=== PATIENT | male | born 1950 | race Caucasian/White ===

== ENCOUNTER 2020-03-11 18:34 | Emergency (ER) | payer MEDICARE, BC ==
--- NOTE | 2020-03-11 19:33 | EDM.PDOC ---
ED HPI GENERAL MEDICAL PROBLEM - General Chief Complaint: Abdominal Pain Stated Complaint: ABDOMINAL PAIN Time Seen by Provider: 03/11/20 19:27 Source of Information: Reports: Patient History Limitations: Reports: No Limitations - History of Present Illness INITIAL COMMENTS - FREE TEXT/NARRATIVE: 69-year-old male presents to the ED with diffuse upper abdominal pain starting about 1830 hrs. today. He had a gym eating sausage and sandwich with some ice cream for dinner but 2-1/2 prior to development of the abdominal pain. Abdominal pain for started in the right upper quadrant and then seemed to move into the epigastrium and pressure in between his shoulder blades. It became very bad about 1630 hrs. today and he vomited twice. He felt that most of the food that came up was undigested dinner. No hematemesis. Reports pain is constant and then intermittently gets worse a colicky component to the pain. Abdominal surgery is that of an appendectomy and he has had midline laparotomy for hardware placement for lumbar spine fusion through the mid abdomen about 2 years ago. History of constipation with stools being somewhat harder and more difficult to pass last 2 months. Current pain is rated as a 4-5 out of 10. It is constant. He does not drink alcohol. Onset: Today, Sudden Onset Date: 03/11/20 Onset Time: 14:30 Duration: Hour(s):, Constant (Once in pain with intermittent worsening of the pain.), Waxing/Waning Location: Reports: Abdomen ([facility] upper abdominal pain radiating through to the back between the shoulder blades.), Radiates to (Lower back) Quality: Reports: Ache Severity: Moderate Improves with: Reports: None Worsens with: Reports: None Context: Reports: Other (Spontaneous occurrence of abdominal pain at 1430 hrs. today about an hour and half to 2 hours from eating dinner.). Denies: Activity, Exercise, Lifting, Sick Contact, Trauma Associated Symptoms: Reports: Loss of Appetite, Nausea/Vomiting. Denies: Confusion, Chest Pain, Cough, cough w sputum, Diaphoresis, Fever/Chills, Headaches, Malaise, Rash, Seizure (X2 at 1430 hrs. when the pain was the most severe), Shortness of Breath, Syncope, Weakness Treatments FLUME TENDER: Reports: Other (see below) Upper Abdomen Pain Score (Numeric/FACES): 4 - Related Data Allergies Allergy/AdvReac Type Severity Reaction Status Date / Time Bifidobacterium bifidum Allergy Sneezing Verified 03/11/20 18:51 [From Acidophilus] lactase Allergy Sneezing Verified 03/11/20 18:51 lactobacillus [Lactobacillus] Allergy Sneezing Verified 03/11/20 18:51 Lactobacillus acidophilus Allergy Sneezing Verified 03/11/20 18:51 [From Acidophilus] Lactobacillus salivarius Allergy Sneezing Verified 03/11/20 18:51 [From Acidophilus] Streptococcus thermophilus Allergy Sneezing Verified 03/11/20 18:51 [From Acidophilus] Home Meds: Home Meds Aspirin [Halfprin] 81 mg PO DAILY 04/23/14 [History] Fexofenadine HCl [Olimpia Allergy] 60 mg PO BEDTIME 04/23/14 [History] Fluticasone Furoate [Veramyst] 1 dose ZOEY ASDIRECTED 04/23/14 [History] Multivitamin [Multi Vitamin Daily] 1 tab PO DAILY 04/23/14 [History] Omeprazole [Prilosec] 20 mg PO DAILY 04/23/14 [History] Vit A/Vit C/Vit E/Zinc/Copper [Preservision] 1 tab PO DAILY 04/23/14 [History] DULoxetine [Cymbalta] 20 mg PO BID 03/11/20 [History] Gabapentin [Neurontin] 600 mg PO DAILY 03/11/20 [History] Naltrexone. 03/11/20 [History] Nortriptyline HCl [Pamelor] 25 mg PO DAILY 03/11/20 [History] Tamsulosin HCl 0.4 mg PO DAILY 03/11/20 [History] Past Medical History HEENT History: Reports: Hard of Hearing, Impaired Vision (Wears glasses) Other HEENT History: L) loss of hearing Cardiovascular History: Reports: Afib Genitourinary History: Reports: BPH (On Flomax and saw 5 metal.) Musculoskeletal History: Reports: Arthritis, Back Pain, Chronic (Had surgery about a year and a half ago with fusion done through the anterior abdominal wall. 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) Oncologic (Cancer) History: Reports: Other (See Below) Other Oncologic History: Skin on nose - Past Surgical History GI Surgical History: Reports: Appendectomy Musculoskeletal Surgical History: Reports: Other (See Below) Other Musculoskeletal Surgeries/Procedures:: s1 L4-5 Social & Family History - Family History Family Medical History: Noncontributory - Tobacco Use Smoking Status *Q: Never Smoker - Caffeine Use Caffeine Use: Reports: Coffee - Recreational Drug Use Recreational Drug Use: No - Living Situation & Occupation Living situation: Reports: Occupation: Employed ED ROS GENERAL - Review of Systems Review Of Systems: See Below Constitutional: Reports: Malaise, Weakness, Fatigue, Decreased Appetite. Denies: Fever, Chills HEENT: Reports: Glasses, Hearing Loss Respiratory: Denies: Shortness of Breath, Wheezing, Pleuritic Chest Pain, Cough, Sputum Cardiovascular: Reports: Blood Pressure Problem, Lightheadedness. Denies: Chest Pain, Claudication, Dyspnea on Exertion, Edema, Orthopnea, Palpitations Endocrine: Reports: Fatigue GI/Abdominal: Reports: Abdominal Pain (See history of present illness.), Constipation, Decreased Appetite, Nausea, Vomiting (Nausea and vomiting starting about 1630 hrs. when the pain was the most intense vomited x2) : Reports: Frequency, Other (Nocturia x1 or 2.) Musculoskeletal: Reports: Back Pain (Chronic low back pain with previous fusion at multiple levels lower lumbar spine.) Skin: Reports: No Symptoms Neurological: Reports: Numbness ( peripheral neuropathy in both lower extremities.), Tingling, Other (Has) Psychiatric: Reports: No Symptoms Hematologic/Lymphatic: Reports: No Symptoms, Other Immunologic: Reports: No Symptoms Free Text/Narrative/Comment: Chronic pain syndrome lower extremities from peripheral neuropathy ED EXAM, GI/ABD - Physical Exam Exam: See Below Exam Limited By: No Limitations General Appearance: Alert, WD/WN, No Apparent Distress, Other (Temperature is 37.0. Heart rate 72 in sinus respiratory was 14 BP 180/114. Pulse ox 96% on room air.) Eyes: Bilateral: Normal Appearance (No blepharal pallor or scleral icterus.) Throat/Mouth: Normal Inspection, Normal Lips, Normal Oropharynx, Other Head: Atraumatic, Normocephalic Neck: Normal Inspection, Supple, Non-Tender, Full Range of Motion. No: Carotid Bruit, Lymphadenopathy (L), Lymphadenopathy (R) Respiratory/Chest: No Respiratory Distress, Lungs Clear, Normal Breath Sounds, No Accessory Muscle Use, Chest Non-Tender Cardiovascular: Normal Peripheral Pulses, Regular Rate, Rhythm, No Edema, No Gallop, No Murmur, No Rub GI/Abdominal Exam: Soft, No Organomegaly, Tender (Numbness in the epigastrium mild.), Abnormal Bowel Sounds (Bowel sounds are a little hyperactive in all 4 quadrants.), Other (Infraumbilical incision to the pubic symphysis where he had his back surgery performed with anterior hardware). No: Distended, Guarding, Rigid, Rebound Back Exam: Decreased Range of Motion, Paraspinal Tenderness Extremities: Normal Inspection, Normal Range of Motion, Non-Tender, No Pedal Edema Neurological: Alert, Oriented, CN II-XII Intact, Normal Cognition Psychiatric: Normal Affect, Normal Mood Skin Exam: Warm, Dry, Intact, Normal Color, No Rash Course - Vital Signs Last Recorded V/S: Last Vital Signs Temp 37.0 C 03/11/20 18:46 Pulse 72 03/11/20 18:46 Resp 14 03/11/20 18:46 BP 180/114 H 03/11/20 18:46 Pulse Ox 96 03/11/20 18:46 - Orders/Labs/Meds Orders: Active Orders 24 hr Category Date Time Status URINALYSIS W/MICROSCOPIC [UA W/MICROSCOPIC] [URIN] Stat Lab 03/11/20 21:09 Ordered Dextrose 5%-0.9% NaCl [Dextrose 5%-Normal Saline] 1,000 Med 03/11/20 19:45 Active ml IV ASDIRECTED Ketorolac [Toradol] Med 03/11/20 20:30 Active 30 mg IVPUSH ONETIME Magnesium Citrate [Citrate of Magnesia] Med 03/11/20 21:12 Once 240 ml PO ONETIME ONE Medication Orders Dextrose/Sodium Chloride (Dextrose 5%-Normal Saline) 1,000 mls @ 999 mls/hr IV ASDIRECTED YESI Last Admin: 03/11/20 19:50 Dose: 999 mls/hr Documented by: [email or web address] Ketorolac Tromethamine (Toradol) 30 mg IVPUSH ONETIME YESI Last Admin: 03/11/20 20:41 Dose: 30 mg Documented by: [email or web address] Labs: Laboratory Tests 03/11/20 03/11/20 Range/Units 19:55 19:55 WBC 9.94 H (4.23-9.07) K/mm3 RBC 4.94 (4.63-6.08) M/mm3 Hgb 14.9 (13.7-17.5) gm/dl Hct 42.8 (40.1-51.0) % MCV 86.6 (79.0-92.2) fl MCH 30.2 (25.7-32.2) pg MCHC 34.8 (32.2-35.5) g/dl RDW Std Deviation 44.3 H (35.1-43.9) fL Plt Count 302 (163-337) K/mm3 MPV 9.2 L (9.4-12.3) fl Neut % (Auto) 75.2 H (34.0-67.9) % Lymph % (Auto) 14.9 L (21.8-53.1) % [place] % (Auto) 6.8 (5.3-12.2) % Eos % (Auto) 2.2 (0.8-7.0) Baso % (Auto) 0.4 (0.1-1.2) % Neut # (Auto) 7.47 H (1.78-5.38) K/mm3 Lymph # (Auto) 1.48 (1.32-3.57) K/mm3 [place] # (Auto) 0.68 (0.30-0.82) K/mm3 Eos # (Auto) 0.22 (0.04-0.54) K/mm3 Baso # (Auto) 0.04 (0.01-0.08) K/mm3 Sodium 135 L (136-145) mEq/L Potassium 3.7 (3.5-5.1) mEq/L Chloride 101 (98-107) mEq/L Carbon Dioxide 24 (21-32) mEq/L Anion Gap 13.7 (5-15) BUN 15 (7-18) mg/dL Creatinine 1.3 (0.7-1.3) mg/dL Est Cr Clr Drug Dosing 61.46 mL/min Estimated GFR (MDRD) 55 (>60) mL/min BUN/Creatinine Ratio 11.5 L (14-18) Glucose 140 H (80-115) mg/dL Calcium 9.1 (8.5-10.1) mg/dL Magnesium 2.1 (1.8-2.4) mg/dl Total Bilirubin 0.3 (0.2-1.0) mg/dL GGT 27 (15-85) U/L AST 34 (15-37) U/L ALT 53 (16-63) U/L Alkaline Phosphatase 109 (46-116) U/L C-Reactive Protein 0.8 (<1.0) mg/dL Total Protein 7.8 (6.4-8.2) g/dl Albumin 3.9 (3.4-5.0) g/dl Globulin 3.9 gm/dL Albumin/Globulin Ratio 1.0 (1-2) Lipase 28 L (73-393) U/L Meds: Medications Generic Name Dose Route Start Last Admin Trade Name Freq PRN Reason Stop Dose Admin Dextrose/Sodium Chloride 1,000 mls @ 999 mls/hr 03/11/20 19:45 03/11/20 19:50 Dextrose 5%-Normal Saline IV 999 mls/hr ASDIRECTED YESI Administration Ketorolac Tromethamine 30 mg 03/11/20 20:30 03/11/20 20:41 Toradol IVPUSH 30 mg ONETIME YESI Administration Discontinued Medications Generic Name Dose Route Start Last Admin Trade Name Freq PRN Reason Stop Dose Admin Diphenhydramine HCl 25 mg 03/11/20 19:34 03/11/20 19:50 Benadryl IVPUSH 03/11/20 19:35 25 mg ONETIME ONE Administration Hydromorphone HCl 0.5 mg 03/11/20 19:34 03/11/20 19:51 Dilaudid IVPUSH 03/11/20 19:35 0.5 mg ONETIME ONE Administration Hydromorphone HCl 0.5 mg 03/11/20 20:27 Dilaudid IVPUSH 03/11/20 20:28 ONETIME ONE Metoclopramide HCl 7.5 mg 03/11/20 19:34 03/11/20 19:51 Reglan IVPUSH 03/11/20 19:35 7.5 mg ONETIME ONE Administration - Radiology Interpretation Free Text/Narrative:: 69-year-old male presents to the ED for evaluation of diffuse upper abdominal pain that started about 1430 hrs. today. Initially it seemed to be right upper quadrant then moved to the epigastrium and then through to his mid back. Became very intense about 1630 hrs. at which time he vomited twice. Pain is constant with a strong intermittent colicky component. On examination no peritoneal signs identified. No guarding. Increased bowel sounds in all 4 quadrants suggesting possibility of constipation as an issue of cause of pain. He relates he has been more constipated for the last 2 months. He has a negative Noe sign. Plan IV D5 normal saline at open. Given Reglan 7.5 mg IV for nausea relief with 25 mg of Benadryl to prevent any dystonic reactions with his current medications. Dilaudid 0.5 mg IV for pain relief. One review of the abdomen to be obtained. Routine labs including serum lipase and GGT ordered. - Re-Assessments/Exams Free Text/Narrative Re-Assessment/Exam: 03/11/20 20:15 KUB is been completed. Visualized portions of the lower lungs are clear. There is increased stool and slight dilatation of the entire right hemicolon and splenic flexure. Scattered stool across the transverse colon descending colon rectal vault appear close to normal. No signs of bowel obstruction. Significant hardware from an anterior approach and lumbar 4 and lumbar spine fusion hardware. Mesh graft across the lower abdomen for ventral hernia repair. 03/11/20 20:16 White count is 9.94 with 75% neutrophils hemoglobin is 14.9 with hematocrit of 42.8. Platelet count 302,000 03/11/20 20:27 nurse reports the patient is complaining of increased abdominal pain. It had let up a little bit with the initial dose of Dilaudid 0.5 mg. Will repeat Dilaudid 0.5 mg IV a with Toradol 30 mg IV. 03/11/20 21:06 Chemistry shows a sodium of 135 and a potassium of 3.7. Chloride 101 with a bicarb of 24. Anion gap is 13.7 with a BUN of 15. Creatinine is 1.3. Estimated GFR is 55 glucose 140. Calcium 9.1. Magnesium 2.1. Liver function normal C-reactive protein is 0.8 GGT was 27. Total protein 7.8 with an albumin fraction of 3.9. Serum lipase is 28. 03/11/20 21:13 patient advised of the finding of significantly constipation of the entire right hemicolon. That is why his pain is colicky and comes and goes and is primarily right upper quadrant. When he will be discharged on magnesium citrate or Citroma 8 ounces mixed with 6 ounces of juice of choice tonight to provide bowel cleanse. Advised MiraLAX powder 17 g or 1 scoop by mouth daily to prevent constipation from occurring. Constipation is secondary to current medications he is using which are anticholinergic and slow his bowel down particularly the nortriptyline. Departure - Departure Time of Disposition: 21:14 Disposition: Home, Self-Care 01 Condition: Fair Clinical Impression: Constipation by delayed colonic transit Abdominal pain Qualifiers: Abdominal location: right lower quadrant Qualified Code(s): R10.31 - Right lower quadrant pain - Discharge Information *PRESCRIPTION DRUG MONITORING PROGRAM REVIEWED*: Not Applicable *COPY OF PRESCRIPTION DRUG MONITORING REPORT IN PATIENT [place]: Not Applicable Instructions: Constipation, Adult Referrals: Jose Raul Juan MD [Primary Care Provider] - Forms: ED Department Discharge Additional Instructions: Evaluation in the emergency room today in regards to development of diffuse right upper quadrant epigastric and left upper quadrant abdominal pain today about 1430 hrs. Pain worsened about 1630 hrs. and precipitated nausea and vomiting x2. Complete work-up done through the ED reveals on x-ray that the right hemicolon is dilated and grossly filled with stool from the cecum all the way up to the hepatic flexure liver on the right upper quadrant. Portions of the transverse colon also contains increased stool. The descending colon and rectal vault are fairly normal. Lab tests were completely normal showing no signs of infection or inflammation and in particular no evidence of gallbladder related illness or pancreatitis. Treatment to be magnesium citrate or Citroma 8 ounces by mouth mixed with 6 ounces of juice of choice such as Gatorade Powerade or other juices. Taken by mouth once and usually starts to work in an hour or 2 and will usually make your bowels move 3 or 4 times providing bowel cleanse. I would then suggest starting MiraLAX powder 17 g or 1 scoop daily to prevent constipation from occurring. Constipation is secondary to current medications you are taking particularly the nortriptyline for peripheral neuropathy. Usually MiraLAX once daily will prevent constipation from reoccurring. Sepsis Event Note (ED) - Evaluation Sepsis Screening Result: No Definite Risk - Focused Exam Vital Signs: Vital Signs Temp Pulse Resp BP Pulse Ox 03/11/20 18:46 37.0 C 72 14 180/114 H 96 - My Orders Last 24 Hours: My Active Orders 03/11/20 19:45 Dextrose 5%-0.9% NaCl [Dextrose 5%-Normal Saline] 1,000 ml IV ASDIRECTED 03/11/20 20:30 Ketorolac [Toradol] 30 mg IVPUSH ONETIME 03/11/20 21:09 URINALYSIS W/MICROSCOPIC [UA W/MICROSCOPIC] [URIN] Stat 03/11/20 21:12 Magnesium Citrate [Citrate of Magnesia] 240 ml PO ONETIME ONE - Assessment/Plan Last 24 Hours: My Active Orders 03/11/20 19:45 Dextrose 5%-0.9% NaCl [Dextrose 5%-Normal Saline] 1,000 ml IV ASDIRECTED 03/11/20 20:30 Ketorolac [Toradol] 30 mg IVPUSH ONETIME 03/11/20 21:09 URINALYSIS W/MICROSCOPIC [UA W/MICROSCOPIC] [URIN] Stat 03/11/20 21:12 Magnesium Citrate [Citrate of Magnesia] 240 ml PO ONETIME ONE
[2020-03-11] MEDS ORDERED: HYDROmorphone 0.5 MG/0.5 ML Syringe IVPUSH ONE ×2 (19:34→20:27)
[2020-03-11] MEDS ORDERED: Metoclopramide 10 MG/2 ML SDV IVPUSH ONE (19:34)
[2020-03-11] MEDS ORDERED: diphenhydrAMINE 50 MG/ML SDV IVPUSH ONE (19:34)
[2020-03-11] MEDS ORDERED: Dextrose 5%-0.9% NaCl 1,000 ML IV SCH (19:45)
--- NOTE | 2020-03-11 20:18 | CR ---
Abdomen: Supine view of the abdomen was obtained. Comparison: No previous study. Degenerative change, minimal scoliosis and prior surgery is seen within the spine. Numerous surgical clips are seen within the pelvis. Bowel gas pattern is normal. Mild vascular calcification is seen. Superior joint space narrowing is noted with the right hip. Impression: 1. Findings as noted above. 2. Nothing acute is seen on supine abdominal x-ray. Diagnostic code #2 This report was dictated in MDT
[2020-03-11] MEDS ORDERED: Ketorolac 30 MG/ML SDV IVPUSH SCH (20:30)
[2020-03-11] MEDS ORDERED: Magnesium Citrate Solution 296 ML Bottle PO ONE (21:12)
== END 2020-03-11 21:41 | disposition home or self-care (01) ==
LOC: JD.ED 18:34
DX: K59.01 Slow transit constipation (principal); I48.91 Unspecified atrial fibrillation; N40.0 Benign prostatic hyperplasia without lower urinary tract symptoms; G62.9 Polyneuropathy, unspecified; Z90.49 Acquired absence of other specified parts of digestive tract; Z88.8 Allergy status to other drugs, medicaments and biological substances; Z88.1 Allergy status to other antibiotic agents; Z79.82 Long term (current) use of aspirin; Z79.899 Other long term (current) drug therapy
CPT/HCPCS: 36415; 74018; 80053; 81001; 82977; 83690; 83735; 85025; 86140; 96361; 96374; 96375; 96376; 99284; A9270; J1170; J1200; J1885; J2765; J7042

== ENCOUNTER 2023-02-08 14:45 | Emergency (ER) | payer MEDICARE, BC | END 2023-02-08 16:19 | disposition home or self-care (01) | LOC: JD.ED 14:45 | DX: R04.0 Epistaxis (principal); N40.0 Benign prostatic hyperplasia without lower urinary tract symptoms; I48.91 Unspecified atrial fibrillation; K21.9 Gastro-esophageal reflux disease without esophagitis; Z91.011 Allergy to milk products; Z79.82 Long term (current) use of aspirin; Z79.899 Other long term (current) drug therapy | CPT/HCPCS: 99283; C9046 ==

== ENCOUNTER 2024-07-10 04:50 | Emergency (ER) | payer MEDICARE, BC ==
[2024-07-10] MEDS ORDERED: Sodium Chloride 0.9% 10 ML Syringe FLUSH PRN (05:10)
[2024-07-10] MEDS: Sodium Chloride 0.9% 500 ML IV ONE (05:32)
[2024-07-10 05:34] LABS: BASOPHILS PERCENT AUTO 0.4 % (0.0-1.0); EOSINOPHILS ABSOLUTE AUTO 0.3 K/mm3 (0.0-0.4); EOSINOPHILS PERCENT AUTO 5.1 % (0.0-6.0); HEMATOCRIT 39.9 % (42.0-52.0); HEMOGLOBIN 14.3 gm/dl (14.0-18.0); IMMATURE GRAN ABSOLUTE AUTO 0.03 K/mm3 (0.00-0.05); IMMATURE GRAN PERCENT AUTO 0.6 % (0.0-0.4); LYMPHOCYTES ABSOLUTE AUTO 1.5 K/mm3 (1.0-4.8); LYMPHOCYTES PERCENT AUTO 29.7 % (24.0-44.0); MEAN CORPUSCULAR HGB CONC 35.8 g/dl (32.0-36.0); MEAN CORPUSCULAR VOLUME 86.6 fl (83.0-99.0); MEAN PLATELET VOLUME 9.6 fl (9.4-12.4); MONOCYTES ABSOLUTE AUTO 0.5 K/mm3 (0.0-0.8); MONOCYTES PERCENT AUTO 8.8 % (0.0-8.0); NEUTROPHILS ABSOLUTE AUTO 2.8 K/mm3 (1.8-7.7); NEUTROPHILS PERCENT AUTO 55.4 % (41.0-71.0); PLATELET COUNT,PLT 220 K/mm3 (150-400); RED BLOOD CELL COUNT 4.61 M/mm3 (4.52-5.90); WHITE BLOOD CELL COUNT,WBC 5.11 K/mm3 (3.9-11.3)
[2024-07-10 05:45] LABS: APPEARANCE,URINE CLEAR (Clear); BILIRUBIN,URINE NEGATIVE (Negative); COLOR,URINE YELLOW (Yellow); GLUCOSE,URINE NEGATIVE (Negative); KETONES,URINE NEGATIVE (Negative); LEUKOCYTE ESTERASE,URINE NEGATIVE (Negative); NITRITE,URINE NEGATIVE (Negative); OCCULT BLOOD,URINE TRACE-INTACT (Negative); PROTEIN,URINE 1+ (Negative); UROBILINOGEN,URINE 0.2 (0.2-1.0)
[2024-07-10 05:57] LABS: A/G RATIO 1.1 (1-2); ALBUMIN 3.9 g/dl (3.4-5.0); ANION GAP 16.3 (5-15); BILIRUBIN TOTAL 0.4 mg/dL (0.2-1.0); BUN/CREATININE RATIO 21.8 (14-18); CALCIUM 9.4 mg/dL (8.5-10.1); CREATININE 1.1 mg/dL (0.7-1.3); EST CRCL DRUG DOSING (CG) 66.63 mL/min; POTASSIUM,K 4.3 mEq/L (3.5-5.1); PROTEIN TOTAL,TP 7.5 g/dl (6.4-8.2)
[2024-07-10 06:00] LABS: BACTERIA,URINE FEW /hpf (FEW); MUCUS,URINE MODERATE /hpf (FEW); SQUAMOUS EPITHELIAL CELLS,UR 0-5 /hpf (0-5); WBC,URINE 0-5 /hpf (0-5)
== END 2024-07-10 06:21 | disposition home or self-care (01) ==
LOC: JD.ED 04:50
DX: N13.2 Hydronephrosis with renal and ureteral calculous obstruction (principal); K21.9 Gastro-esophageal reflux disease without esophagitis; M19.90 Unspecified osteoarthritis, unspecified site; Z86.16 Personal history of COVID-19; Z90.49 Acquired absence of other specified parts of digestive tract; Z88.8 Allergy status to other drugs, medicaments and biological substances; Z79.82 Long term (current) use of aspirin; Z79.899 Other long term (current) drug therapy
CPT/HCPCS: 36415; 74176; 80053; 81001; 83690; 85025; 96360; 99284; J7030; 99283